=== PATIENT | male | born 1990 | race Caucasian/White ===

== ENCOUNTER → 2018-04-11 | Outpatient (CLI) | payer OTHER ==
--- NOTE | 2018-04-11 16:13 | XR ---
Right hand HISTORY: Trauma and pain 3 views of the right hand Bone mineralization, joint spaces and alignment are maintained. Soft tissue swelling noted at the thi rd digit of the right hand. IMPRESSION: No fracture or dislocation.
== END | disposition home or self-care (01) ==
LOC: RADXRYALE 15:09
PROVIDERS: ATTEND Internal Medicine
DX: M79.641 Pain in right hand (principal)

== ENCOUNTER → 2019-01-02 | Outpatient (CLI) | payer OTHER ==
--- NOTE | 2019-01-02 13:27 | XR ---
EXAMINATION TYPE: XR ankle complete LT DATE OF EXAM: 01/02/2019 COMPARISON: NONE HISTORY: Pain FINDINGS: Three views of the ankle demonstrate the ankle mortise to be intact and symmetric. The joint spaces are preserved. The osseous structures are intact. IMPRESSION: 1. No definite osseous abnormality. If there is concern for soft tissue injury or mass correlate with MRI.
== END ==
LOC: RADXRYALE 13:01
PROVIDERS: ATTEND Internal Medicine
DX: M25.572 Pain in left ankle and joints of left foot (principal)

== ENCOUNTER → 2020-04-20 | Outpatient (CLI) | payer BC ==
--- NOTE | 2020-04-20 23:33 | MR ---
EXAMINATION TYPE: MR lumbar spine wo con DATE OF EXAM: 04/20/2020 COMPARISON: None HISTORY: Low back pain and right hip pain. Multiplanar multiecho imaging of the lumbar spine was performed without contrast. Lumbar vertebra have normal alignment. There is some mild narrowing and decreased signal in the disks at L4-5 L5-S1. There is posterior disc herniation at L4-5 and L5-S1 in the midline. L5-S1 disc herni ation is larger with some encroachment and compromise of the spinal canal. There is no paraspinal mass. Sacroiliac joints appear intact. There is no compression fracture. The n eural foramina are fairly well-maintained. Lumbar nerve roots appear intact. I see no bony destructiv e process. IMPRESSION: Posterior disc herniations at L4-5 L5-S1 in the midline with a mild relative spinal stenosis at L5-S1 . No fracture. Smaller L4-5 posterior disc herniation.
== END | disposition home or self-care (01) ==
LOC: RADMRIMAIN 20:19
PROVIDERS: ATTEND Orthopaedic Surgery
DX: M48.07 Spinal stenosis, lumbosacral region (principal); M51.26 Other intervertebral disc displacement, lumbar region; M51.27 Other intervertebral disc displacement, lumbosacral region
CPT/HCPCS: 72148

== ENCOUNTER 2020-07-21 11:51 | Day surgery (SDC) | payer BC ==
[2020-07-17 16:06] VITALS: BMI 25.1
[~2020-07-21 11:51] MED LIST: LACTATED RINGERS 1,000 ML IV SCH
[2020-07-21 12:33] VITALS: RESP 16; TEMP 98.2
[2020-07-21] MEDS ORDERED: ROPIVACAINE 5MG/ML 20ML VIAL ONE (12:41)
[2020-07-21] MEDS ORDERED: TRIAMCINOLONE ACETONIDE 40 MG/ML 1 ML VIAL ONE (12:41)
[2020-07-21] MEDS ORDERED: IOPAMIDOL M200 10 ML VIAL ONE (12:41)
--- NOTE | 2020-07-21 13:00 | P.PCN ---
Date of Procedure: 07/21/20 Surgeon: Niya Marcial Pathology: none sent Condition: stable Disposition: PACU Description of Procedure: PREOPERATIVE DIAGNOSIS: 1-Lumbar radiculopathy 2- Lumber disc herniation. POSTOPERATIVE DIAGNOSIS: Same as above PROCEDURE 1. Lumbar epidural steroid injection under fluoroscopic guidance at the L5-S1 level left paramedian. 2. Lumbar epidurogram. ANESTHESIA: Local only with 1% lidocaine EBL: Minimal PROCEDURE INDICATION: The patient with low back pain and radiculitis symptoms unresponsive to conservative treatment. Fluoroscopy was used to optimize visualization of the needle placement and to maximize safety. The patient used to have pain in the right leg with numbness and tingling however he denies any of these symptoms right now. his pain currently is more on the left side today. Because of his sideshifting pain and lack of pain on the right side I decided to do an interlaminar epidural steroid injection at the L5-S1 level under fluoroscopic guidance instead of the transforaminal epidural on the right side of the L5-S1 as the patient was scheduled for. Description of procedure: The patient was seen and identified in the preoperative area. Risks, benefits, complications including but not limited to infections ,bleeding ,allergic reaction to the medications ,nerve damage and not complete pain relief , and alternatives were discussed with the patient. The patient agreed to proceed with the procedure and signed the consent. IV was started, and vital signs were stable. Patient was taken to the OR and time out was completed. The patient was placed in the prone position on procedure table and a pillow was placed under the abdomen to reduce lumbar lordosis. The lumbosacral area was prepped and draped in the usual sterile fashion with ChloraPrep.Patient was closely monitored during the procedure. Conscious sedation was used during the procedure to decrease patients anxiety. Vital signs were monitered during the entire procedure. Using anterior-posterior fluoroscopy, the L5-S1 interlaminar space was identified and the skin over this site was marked and then infiltrated with 1% lidocaine subcutaneously. Subsequently, a 20-gauge Tuohy epidural needle was inserted and advanced toward the epidural space using the Loss of resistance to air technique and guided by AP and lateral fluoroscopy. The correct needle position in the epidural space was verified with the injection of 1 mL of the water soluble contrast dye Omnipaque 180 contrast and observing an excellent epidurogram with the epidural spread of the dye, after negative aspiration for blood and CSF and in the absence of paresthesias. Again after negative aspiration, a 8 ml mixture containing 80 mg of Kenalog and 5 ml of preservative free Normal Saline, and 2 ml of preservative free ropivacaine 0.5% solution was injected and a washout of epidurogram was seen. Needle was withdrawn intact, skin was cleansed, and bandages were applied. patient tolerated procedure well and was transferred to PACU in stable condition.A copy of the needle placement picture was saved to the fluoroscopy machine. COMPLICATIONS: None
--- NOTE | 2020-07-21 13:05 | P.CONS ---
History of Present Illness - Reason for Consult Consult date: 07/21/20 - Chief Complaint Lower back and left leg pain - History of Present Illness This is a 30-year-old gentleman with history of lower back pain which started when he was in school. The patient used to have pain going down his right leg with numbness and tingling however recently the pain started on that side and started going to the left leg. The patient now denies any paresthesia in the lower extremities. He denies any bowel or bladder dysfunction or any weakness in the lower extremities. This pain gets worse by sitting for too long or walking for prolonged. The patient was scheduled to have transforaminal epidural steroid injection at the L5-S1 level on the right side by Dr. Ashby. Past Medical History Additional Past Medical History / Comment(s): Lower back pain. States played hockey in college and states he thinks pain is from this. History of Any Multi-Drug Resistant Organisms: None Reported Additional Past Surgical History / Comment(s): Colonoscopy Past Anesthesia/Blood Transfusion Reactions: No Reported Reaction Smoking Status: Never smoker - Past Family History Mother Family Medical History: No Reported History Medications and Allergies Home Medications Medication Instructions Recorded Confirmed Type Naproxen Sodium [Aleve] 220 mg PO DAILY 07/17/20 07/17/20 History Allergies Allergy/AdvReac Type Severity Reaction Status Date / Time No Known Allergies Allergy Verified 07/21/20 12:26 Physical Exam Vitals: Vital Signs Temp Pulse Resp BP Pulse Ox 07/21/20 12:32 98.2 F 80 16 130/76 100 Intake and Output 07/20/20 07/21/20 07/21/20 22:59 06:59 14:59 Other: Weight 80.6 kg - Constitutional General appearance: average body habitus - Neurologic Straight leg raising test negative bilaterally, Antoine's test negative bilaterally, internal and external rotation of the hip joints did not elicit any pain. The patient has normal muscle strength in the lumbar extremities Neurologic: CNII-XII intact - Psychiatric Psychiatric: A&O x's 3, appropriate affect, intact judgment & insight Results Results: Lumbar spine MRI showed disc herniation at the L4 5 and L5-S1 level more significant at the L5-S1 level. Assessment and Plan Plan: This is a 30-year-old gentleman with lumbar disc herniation. The patient's pain is more on the left side today than the right side. The patient was scheduled to have transforaminal epidural steroid injection at the L5-S1 level on the r ight side however given his clinical picture today I decided to do lumbar interlaminar epidural steroid injection under fluoroscopic guidance. I thank Dr. Ashby for the referral
[2020-07-21 13:22] VITALS: BP 121/77; PULSE 78
--- NOTE | 2020-07-21 16:43 | FL ---
Fluoroscopy HISTORY: Pain 5 seconds fluoroscopy time supplied to the referring clinician. 3 intraoperative C-arm images docume nt the procedure. See dictated report from anesthesia.
== END 2020-07-21 13:33 | disposition home or self-care (01) ==
LOC: ORPAIN 11:51
PROVIDERS: ATTEND Anesthesiology
DX: M51.16 Intervertebral disc disorders with radiculopathy, lumbar region (principal); Z98.890 Other specified postprocedural states; Z79.1 Long term (current) use of non-steroidal anti-inflammatories (NSAID)
CPT/HCPCS: 62323; J3301; Q9966; J2795; 64483

== ENCOUNTER 2020-08-06 13:10 | Day surgery (SDC) | payer BC ==
[2020-08-05 10:27] VITALS: BMI 25.4
[2020-08-06 13:30] VITALS: TEMP 97.5
[2020-08-06] MEDS ORDERED: methylPREDNISolone ACETATE 40 MG/ML 1 ML VIAL ONE (13:43)
[2020-08-06] MEDS ORDERED: IOPAMIDOL M200 10 ML VIAL ONE (13:43)
--- NOTE | 2020-08-06 13:54 | P.PCN ---
Date of Procedure: 08/06/20 Procedure(s) Performed: PREOPERATIVE DIAGNOSIS: 1- Lumbar herniated Disc Diseases 2-Lumbar radiculopathy. POSTOPERATIVE DIAGNOSIS: Same as preop diagnosis. PROCEDURE 1. Lumbar epidural steroid injection under fluoroscopic guidance at the L5-S1 level. (Fluoroscopy imaging was available in radiology department) 2. Lumbar epidurogram. ANESTHESIA: Local with 1% lidocaine 3 ml only EBL: Minimal PROCEDURE INDICATION: The patient with low back pain and radiculitis symptoms unresponsive to conservative treatment. Fluoroscopy was used to optimize visualization of the needle placement and to maximize safety. PROCEDURE DESCRIPTION / TECHNIQUE: The patient was seen and identified in the preoperative area. Risks, benefits, complications including but not limited to infections ,bleeding ,allergic reaction to the medications ,nerve damage and not complete pain releife , and alternatives were discussed with the patient. The patient agreed to proceed with the procedure and signed the consent. IV was started, and vital signs were stable. Patient was taken to the OR and time out was completed. The patient was placed in the prone position on procedure table and a pillow was placed under the abdomen to reduce lumbar lordosis. The lumbosacral area was prepped and draped in the usual sterile fashion.ere closely monitored during the procedure. Vital signs was monitered during the entire procedure. Using anterior-posterior fluoroscopy, the L5-S1 interlaminar space was identified and the skin over this site was marked and then infiltrated with 1% lidocaine subcutaneously. Subsequently, a 20-gauge Tuohy epidural needle was inserted and advanced toward the epidural space using the ``Loss of resistance technique and guided by AP and lateral fluoroscopy. The correct needle position in the epidural space was verified with the injection of 2 mL of the water gonzalez uble contrast dye Isovue 200 contrast and observing an excellent epidurogram with the epidural spread of the dye, after negative aspiration for blood and CSF and in the absence of paresthesias. Again after negative aspiration, a 6 ml mixture containing 80 mg of Depo-medrol , and 2 ml of preservative free Normal Saline, and 2 ml of preservative free lidocaine 1% solution was injected and a washout of epidurogram was seen. Needle was withdrawn intact, skin was cleansed, and bandages were applied. COMPLICATIONS: None DISPOSITION / PLANS: The patient was placed in a supine position and transferred to the recovery area in a stable condition for observation. There was no evidence of lower extremity motor or sensory deficit after the procedure. Patient was discharged from the recovery room after meeting discharge criteria. Home discharge instructions were given to the patient by the staff. The patient was reexamined prior to discharge. The patient will schedule a follow up in the clinic in 2-4 weeks.
[2020-08-06 14:00] VITALS: RESP 18
--- NOTE | 2020-08-06 14:06 | FL ---
EXAMINATION TYPE: FL guided pain mgmt statistic DATE OF EXAM: 08/06/2020 HISTORY: Fluoroscopy time 2 seconds of fluoroscopy provided. IMPRESSION: 1. Fluoroscopy time.
[2020-08-06 14:17] VITALS: BP 139/86; PULSE 66
== END 2020-08-06 14:23 | disposition home or self-care (01) ==
LOC: ORPAIN 13:10
PROVIDERS: ATTEND Specialist
DX: M51.16 Intervertebral disc disorders with radiculopathy, lumbar region (principal)
CPT/HCPCS: 62323; J1030; Q9966

== ENCOUNTER → 2020-09-21 | Outpatient (CLI) | payer BC ==
[2020-09-21 14:19] VITALS: BP 134/92; PULSE 91; RESP 18; TEMP 98.5
--- NOTE | 2020-09-21 14:56 | P.PN ---
Subjective Progress Note Date: 09/21/20 This is a 30-year-old gentleman with history of lower back pain with radiation to the left leg and 2 recent lumbar epidural steroid injection. The patient says that these injections gave him 75-80% of pain relief. 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 Patient denies new-onset weakness, bowel/bladder incontinence, or any other signs or symptoms of cauda equina syndrome. There are no signs of acute intoxication, and no indications of medication diversion or overuse. In addition to above, 13-point review of systems is also negative for chest pain, shortness of breath, changes in vision, changes in hearing, new onset weakness, abdominal pain, diarrhea, extreme fatigue, malaise, fever, skin changes, homicidal or suicidal ideation, or bowel or bladder incontinence. Vital Signs: Reviewed in EMR Gen: AAOx3, NAD HEENT: PERRLA,hearing grossly normal Pulm: resp unlabored Neck: supple, trachea midline Neuro exam of the lower extremities: Normal muscle strength bilaterally Straight leg raising test: Mildly positive on the left side Tenderness in the paravertebral musculature: Mild tenderness in the lumbar paravertebral musculature on the left side Neuro: CN II-XII grossly intact, Imaging: Reviewed in EMR/chart Assessment: Lumbar radiculopathy Plan: 1. Explanation: Opioid and psychological risk scores were reviewed. Diagnoses, prognoses, and multiple treatment options including but not limited to physical therapy, interventional therapies, adjuvant medical therapies, narcotic medication therapies, and surgery were discussed with the patient and all questions were answered to the patient's satisfaction. 2. Opioid agreement: Signed with the patient and the patient is warned not to use opioids while driving or before driving and not to combine opioids with benzodiazepines or alcohol. 3. Counseling: The patient was counseled extensively on SMOKING CESSATION, BODY MASS INDEX, EXERCISE. Specifically, the patient was instructed regarding the importance of smoking cessation, obesity, and exercise in the context of both chronic pain and overall health. 4. Procedures: For now however if his pain starts to get worse then we might need to do another epidural steroid injection. 5. Consultations: None 6. Investigations: None 7. Medications: None prescribed 8. Disposition: Return to clinic as needed Objective - Vital Signs Vital signs: Vital Signs Temp 98.5 F 09/21/20 14:12 Pulse 91 09/21/20 14:12 Resp 18 07/19/21 14:12 BP 134/92 09/21/20 14:12 Pulse Ox 97 09/21/20 14:12
== END ==
LOC: PNWHC3 14:04
PROVIDERS: ATTEND Anesthesiology
DX: M54.16 Radiculopathy, lumbar region (principal)
CPT/HCPCS: 99211

== ENCOUNTER → 2021-02-24 | Outpatient (CLI) | payer BC ==
--- NOTE | 2021-02-25 08:45 | XR ---
EXAMINATION TYPE: XR elbow complete RT DATE OF EXAM: 02/24/2021 COMPARISON: NONE HISTORY: Pain FINDINGS: Three views of the elbow demonstrate no pathologic joint effusion. The osseous structures are intact . There is no acute fracture or dislocation. There is a small olecranon spur with soft tissue fulln ess in the region. IMPRESSION: 1. Olecranon spur with soft tissue fullness. Correlate for olecranon bursitis.
== END | disposition home or self-care (01) ==
LOC: RADXRYALE 16:05
PROVIDERS: ATTEND Internal Medicine
DX: M77.8 Other enthesopathies, not elsewhere classified (principal)

== ENCOUNTER → 2021-04-07 | Outpatient (CLI) | payer BC, MEDICAID ==
--- NOTE | 2021-04-07 09:35 | P.PN ---
Subjective Progress Note Date: 04/07/21 Principal diagnosis: A 30 yr old malewith a history of severe and chronic low back pain secondary to lumbar degenerative disc diseases and lumbar spondylosis with facet arthropathy presents today for pain evaluation. Patient states he had a LESI of the L5-S1 in August 2020 where he experienced pain relief for approximately 4 months. Pain level is currently at 3 out of 10 in intensity, dull/ achy in character and occasionally sharp/ shooting towards the left hip. 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 Pain is alleviated with medication ice stretching and a home based physical therapy regimen. Patient also admits that he was hit with a hockey puck 3 days ago on the right side of his neck and he is still experiencing pain and limited range of motion due to pain and stiffness Interventional pain procedures completed include LESI of the L5-S1 Patient denies any side effects of the medication(s), denies excessive drowsiness or sleepiness, denies suicidal ideation and reports that the current pain medication is helping to control the pain and improve activities of daily living. Patient denies any motor or sensory deficits. Patient denies any fever or night sweats, denies any change in the bowel movements or urination. Physical Examination: -Constitutional: Cooperative. Not in acute distress . -HEENT: Neck is supple. No lymphadenopathy. No thyromegaly. Normal thyroid size. Eyes: No ptosis , no icterus, no photophobia. ENT: No auditory deficits. Normal oropharynx. No Thrush. - Respiratory: Chest clear to auscultations bilaterally. No wheezing. No rhonchi. - Cardiovascular: Regular rate and rhythm. S1 / S2 , no S3 , no S4. - Gastrointestinal: Abdomen soft no tenderness. Bowel sounds positive in all four quadrants. No organomegaly. - Genitourinary: Deferred. - Neurologic: Cranial nerve II to XII intact. No focal neurological deficits. - Psychatric: Alert & oriented x 3. Matching mood & appropriate affect. Judgment and insight intact. - Lymphatic: No Lymphadenopathy. - Musculoskeletal: Cervical spine: Muscle bulk/ tone/ strength in the bilateral upper extremities normal. Lateral flexion less than 20 bilaterally Cervical rotation to the right limited due to pain and spasms Right cervical paraspinal spasms noted upon palpation Facet loading test cervical area positive. Lumbar spine: Motor bulk/ tone/ strength lower extremities , thigh and legs : 5/5 Deep tendon reflexes : Normal Knee Jerk. Normal Ankle Jerk . Lumbar Facet Loading Test positive over L4-S1 Straight Leg Raise: positive at 30 degrees right side/ left side Caroline test: positive right side / left side Range of motion: Flexion of the lumbar spine <60 degrees Range of motion: Extension of the lumbar spine <20 degrees Severe tenderness over the Sacroiliac joint: right side / left side Assessment and plan: Recommendation of an MRI of the cervical spine status post trauma Recommendation of LESI of the L5-S1 Risks benefits of procedure discussed and patient verbalized understanding Denies aspirin or anticoagulant use All patient questions answered MAPS reviewed and it was appropriate. I have spent 31 minutes on patient care today. Dr Evans was available by phone for the evaluation of this patient. The time was used to review the medical records including relevant urine studies and Prescription history (MAPs), review of the available imaging, evaluation and examination of the patient, coordination of care with the medical staff and if applicable referring physicians, as well as creation of the medical record PQRS Measure Charge Sheet - Pain Location Lower Back Non-Pharmacological Interventions: Inactivity PQRS Narrative: Pain Intensity [Lower Back] 4 Scale Used Numeric (1 - 10) Home Medications: Ambulatory Orders No Known Home Medications 09/17/20
[2021-04-07 09:54] VITALS: BP 141/82; PULSE 87; RESP 18; TEMP 97.9
== END ==
LOC: PNWHC3 08:45
PROVIDERS: ATTEND Physician Assistant Medical
DX: M47.816 Spondylosis without myelopathy or radiculopathy, lumbar region (principal); M51.36 Other intervertebral disc degeneration, lumbar region
CPT/HCPCS: 99211

== ENCOUNTER 2021-05-04 07:59 | Day surgery (SDC) | payer MEDICAID ==
[2021-05-03 09:54] VITALS: BMI 23.7
[2021-05-04 08:17] VITALS: RESP 16; TEMP 97.5
[2021-05-04] MEDS ORDERED: methylPREDNISolone ACETATE 80 MG/ML 1 ML VIAL ONE (08:18)
[2021-05-04] MEDS ORDERED: IOPAMIDOL M200 10 ML VIAL ONE (08:18)
--- NOTE | 2021-05-04 08:33 | P.PCN ---
Date of Procedure: 05/04/21 Description of Procedure: Procedure: 1. L5-S1 Epidural steroid injection under fluoroscopic guidance # 03/08 , 2. Lumbar epidurogram PREOPERATIVE DIAGNOSIS: Lumbar degenerative disc disease, and Lumbar radiculopathy. POSTOPERATIVE DIAGNOSIS: Lumbar degenerative disc disease, and Lumbar radiculopathy. SURGEON: Twan Diamond ANESTHESIA: Local with 1% lidocaine, and IV sedation : None EBL: None. Specimen removed: None Fluoroscopic image: saved to electronic medical records PROCEDURE INDICATION: The patient had history of Lumbar degenerative disc disease and Lumbar radiculopathy. Failed to conservative therapy. Presented for epidural steroid injection. Patient had previous epidural steroid injection more than 6 months ago which helped him good pain relief. Came back for repeat epidural procedure injection. PROCEDURE DESCRIPTION: The patient was seen and identified in the preoperative area. Risks, benefits, complications, and alternatives were discussed with the patient. The patient agreed to proceed with the procedure and signed the consent. IV was started, and vital signs were stable. Patient was taken to the procedure area, and time out was completed. The patient was placed in the prone position on procedure table and a pillow was placed under the abdomen to reduce lumbar lordosis. The lumbosacral area was prepped and draped in the usual sterile fashion. Critical pause was taken. Vital signs were closely monitored during the procedure. Using anterior-posterior fluoroscopy, the L5-S1 interlaminar space was identified, and skin and deeper tissues were localized with 1% lidocaine. Using anterior-posterior fluoroscopy, lateral fluoroscopy, and [id number] technique, a 18 gauge 3.5 Tuohy epidural needle entered the epidural space. After negative aspiration of CSF and blood with no paresthesias, 1 ml of [id number] contrast dye was injected and an excellent epidurogram was seen. Again after negative aspiration of CSF and blood with no paresthesias, 10 mL of block solution was injected into the epidural space. Block solution contained 80 mg of Depo-Medrol, and 9 mL of preservative-free normal saline. Needle was withdrawn intact, skin was cleansed, and bandages were applied. COMPLICATIONS: None. DISPOSITION / PLANS: The patient was placed in a supine position and transferred to the recovery area in a stable condition for observation. Patient was discharged from the recovery room after meeting discharge criteria. Home discha rge instructions given to the patient by the staff. The patient was reexamined prior to discharge. The patient will schedule a follow up in the clinic in 4 weeks.
[2021-05-04] MEDS ORDERED: LACTATED RINGERS 1,000 ML IV SCH (08:45)
[2021-05-04 08:46] VITALS: BP 131/84; PULSE 75
--- NOTE | 2021-05-04 11:20 | FL ---
Fluoroscopy HISTORY: Pain 5 seconds fluoroscopy time supplied to the referring clinician. 2 intraoperative C-arm images docume nt the procedure. See dictated report from anesthesia.
== END 2021-05-04 09:10 | disposition home or self-care (01) ==
LOC: ORPAIN 07:59
DX: M51.16 Intervertebral disc disorders with radiculopathy, lumbar region (principal)
CPT/HCPCS: 62323; J1040; Q9966

== ENCOUNTER → 2021-05-17 | Outpatient (CLI) | payer MEDICAID ==
[2021-05-17 09:10] VITALS: BP 130/81; PULSE 90; RESP 18; TEMP 97.8
--- NOTE | 2021-05-17 09:10 | P.PN ---
Subjective Progress Note Date: 05/17/21 Principal diagnosis: A 31 yr old male with a history of severe and chronic low back pain secondary to lumbar degenerative disc diseases and lumbar spondylosis with facet arthropathy presents today for evaluation status post LESI L5-S1. Patient states he experienced 0% pain relief status post procedure. Pain level has worsened and is currently 7 out of 10 in intensity, dull, achy in the lower aspects of the lumbar spine but escalates as high as 10 out of 10 in intensity with standing, walking, bending, lifting or rolling over at bedtime. He also admits to left lower extremity occasional shooting pain. Pain is alleviated with topicals, injections, ice and heat alternations, physical therapy that was discontinued due to his MRI results. Daily home stretching regimen, massage therapy that ended 12/24, repositioning and rest. Interventional pain procedures completed include LESI L5-S1 x 3. Patient denies any side effects of the medication(s), denies excessive drowsiness or sleepiness, denies suicidal ideation and reports that the current pain medication is helping to control the pain and improve activities of daily living. Patient denies any motor or sensory deficits. Patient denies any fever or night sweats, denies any change in the bowel movements or urination. Physical Examination: -Constitutional: Cooperative. Not in acute distress . -HEENT: Neck is supple. No lymphadenopathy. No thyromegaly. Normal thyroid size. Eyes: No ptosis , no icterus, no photophobia. ENT: No auditory deficits. Normal oropharynx. No Thrush. - Respiratory: Chest clear to auscultations bilaterally. No wheezing. No rhonchi. - Cardiovascular: Regular rate and rhythm. S1 / S2 , no S3 , no S4. - Gastrointestinal: Abdomen soft no tenderness. Bowel sounds positive in all four quadrants. No organomegaly. - Genitourinary: Deferred. - Neurologic: Cranial nerve II to XII intact. No focal neurological deficits. - Psychatric: Alert & oriented x 3. Matching mood & appropriate affect. Judgment and insight intact. - Lymphatic: No Lymphadenopathy. - Musculoskeletal: Cervical spine: Muscle bulk/ tone/ strength in the bilateral upper extremities normal. Facet loading test cervical area positive. Lumbar spine: Motor bulk/ tone/ strength lower extremities , thigh and legs : 5/5 Deep tendon reflexes : Normal Knee Jerk. Normal Ankle Jerk . Vertebral body tenderness to palpation over L4, L5 Lumbar Facet Loading Test positive Straight Leg Raise: positive at 30 degrees right side/ left side Gaenslen's Test positive Sacral spine : Severe tenderness over the Sacroiliac joint: right side / left side Range of motion: Flexion of the lumbar spine <60 degrees Range of motion: Extension of the lumbar spine <20 degrees Gaenslen's Test positive Caroline test: positive right side / left side Assessment and plan: Chronic low back pain secondary to lumbar degenerative disc disease , lumbar spondylosis with facet arthropathy without myelopathy Recommendation of LESI L4-L5. Risks, benefits of procedure discussed and patient verbalized understanding. Denies anticoagulant use. Denies medical history of diabetes mellitus. All patient questions answered MAPS reviewed and it was appropriate. I have spent 31 minutes on patient care today. Dr Evans was available by phone for the evaluation of this patient. The time was used to review the medical records including relevant urine studies and Prescription history (MAPs ), review of the available imaging, evaluation and examination of the patient, coordination of care with the medical staff and if applicable referring physicians, as well as creation of the medical record PQRS Measure Charge Sheet Mode of Arrival: Ambulatory PQRS Narrative: Blood Pressure 130/81 Pain Intensity [Lower Back] 7 Scale Used Numeric (1 - 10) Hx Alcohol Use (MH) No Home Medications: Ambulatory Orders No Known Home Medications 09/17/20
== END ==
LOC: PNWHC3 08:46
PROVIDERS: ATTEND Physician Assistant Medical
DX: M51.36 Other intervertebral disc degeneration, lumbar region (principal); M47.816 Spondylosis without myelopathy or radiculopathy, lumbar region; G89.29 Other chronic pain
CPT/HCPCS: 99211

== ENCOUNTER 2021-06-22 13:15 | Day surgery (SDC) | payer MEDICAID ==
[2021-06-21 09:10] VITALS: BMI 24.4
[~2021-06-22 13:15] MED LIST changes: +LIDOCAINE 1% (10MG/ML) FOR IV START INTRADERMA PRN
[2021-06-22 13:29] VITALS: TEMP 98.2
[2021-06-22] MEDS ORDERED: methylPREDNISolone ACETATE 40 MG/ML 1 ML VIAL ONE (13:42)
[2021-06-22] MEDS ORDERED: IOPAMIDOL M200 10 ML VIAL ONE (13:42)
--- NOTE | 2021-06-22 13:55 | P.PCN ---
Date of Procedure: 06/22/21 Procedure(s) Performed: PREOPERATIVE DIAGNOSIS: 1- Lumbar herniated Disc Diseases 2-Lumbar radiculopathy. POSTOPERATIVE DIAGNOSIS: Same as preop diagnosis. PROCEDURE 1. Lumbar epidural steroid injection under fluoroscopic guidance at the L4-5 level. (Fluoroscopy imaging was available in radiology department) 2. Lumbar epidurogram. ANESTHESIA: Local with 1% lidocaine 3 ml only EBL: Minimal PROCEDURE INDICATION: The patient with low back pain and radiculitis symptoms unresponsive to conservative treatment. Fluoroscopy was used to optimize visualization of the needle placement and to maximize safety. PROCEDURE DESCRIPTION / TECHNIQUE: The patient was seen and identified in the preoperative area. Risks, benefits, complications including but not limited to infections ,bleeding ,allergic reaction to the medications ,nerve damage and not complete pain releife , and alternatives were discussed with the patient. The patient agreed to proceed with the procedure and signed the consent. IV was started, and vital signs were stable. Patient was taken to the OR and time out was completed. The patient was placed in the prone position on procedure table and a pillow was placed under the abdomen to reduce lumbar lordosis. The lumbosacral area was prepped and draped in the usual sterile fashion.ere closely monitored during the procedure. Vital signs was monitered during the entire procedure. Using anterior-posterior fluoroscopy, the L4-5 interlaminar space was identified and the skin over this site was marked and then infiltrated with 1% lidocaine subcutaneously. Subsequently, a 20-gauge Tuohy epidural needle was inserted and advanced toward the epidural space using the ``Loss of resistance technique and guided by AP and lateral fluoroscopy. The correct needle position in the epidural space was verified with the injection of 2 mL of the water soluble contrast dye Isovue 200 contrast and observing an excellent epidurogram with the epidural spread of the dye, after negative aspiration for blood and CSF and in the absence of paresthesias. Again after negative aspiration, a 6 ml mixture containing 80 mg of Depo-medrol , and 2 ml of preservative free Normal Saline, and 2 ml of preservative free lidocaine 1% solution was injected and a washout of epidurogram was seen. Needle was withdrawn intact, skin was cleansed, and bandages were applied. COMPLICATIONS: None DISPOSITION / PLANS: The patient was placed in a supine position and transferred to the recovery area in a stable condition for observation. There was no evidence of lower extremity motor or sensory deficit after the procedure. Patient was discharged from the recovery room after meeting discharge criteria. Home discharge instructions were given to the patient by the staff. The patient was reexamined prior to discharge. The patient will schedule a follow up in the clinic in 2-4 weeks.
[2021-06-22 14:07] VITALS: RESP 20
--- NOTE | 2021-06-22 14:11 | FL ---
EXAMINATION TYPE: FL guided pain mgmt statistic DATE OF EXAM: 06/22/2021 HISTORY: Fluoroscopy time 1 seconds of fluoroscopy provided. IMPRESSION: 1. Fluoroscopy time.
[2021-06-22 14:18] VITALS: BP 126/83; PULSE 78
== END 2021-06-22 14:24 ==
LOC: ORPAIN 13:15
PROVIDERS: ATTEND Specialist
DX: M51.16 Intervertebral disc disorders with radiculopathy, lumbar region (principal)
CPT/HCPCS: 62323; J1030; Q9966

== ENCOUNTER 2022-06-09 06:44 | Day surgery (SDC) | payer OTHER ==
[2022-06-09 07:09] VITALS: TEMP 97.7
[2022-06-09] MEDS ORDERED: IOPAMIDOL M200 10 ML VIAL ONE (07:40)
[2022-06-09] MEDS ORDERED: methylPREDNISolone ACETATE 80 MG/ML 1 ML VIAL ONE (07:40)
--- NOTE | 2022-06-09 07:54 | P.PCN ---
Date of Procedure: 06/09/22 Description of Procedure: Procedure: 1. L4-L5 Epidural steroid injection under fluoroscopic guidance , 2. Lumbar epidurogram PREOPERATIVE DIAGNOSIS: Lumbar degenerative disc disease, and Lumbar radiculopathy. POSTOPERATIVE DIAGNOSIS: Lumbar degenerative disc disease, and Lumbar ra diculopathy. SURGEON: Twan Diamond ANESTHESIA: Local with 1% lidocaine, and IV sedation: None EBL: None. Specimen removed: None Fluoroscopic image: saved to electronic medical records PROCEDURE INDICATION: The patient had history of Lumbar degenerative disc disease and Lumbar radiculopathy. Failed to conservative therapy. Presented for epidural steroid injection. PROCEDURE DESCRIPTION: The patient was seen and identified in the preoperative area. Risks, benefits, complications, and alternatives were discussed with the patient. The patient agreed to proceed with the procedure and signed the consent. IV was started, and vital signs were stable. Patient was taken to the procedure area, and time out was completed. The patient was placed in the prone position on procedure table and a pillow was placed under the abdomen to reduce lumbar lordosis. The lumbosacral area was prepped and draped in the usual sterile fashion. Critical pause was taken. Vital signs were closely monitored during the procedure. Using anterior-posterior fluoroscopy, the L4-L5 interlaminar space was identified, and skin and deeper tissues were localized with 1% lidocaine. Using anterior-posterior fluoroscopy, lateral fluoroscopy, and [id number] technique, a 20 gauge 3.5 Tuohy epidural needle entered the epidural space. After negative aspiration of CSF and blood with no paresthesias, 1 ml of [id number] contrast dye was injected and an excellent epidurogram was seen. Again after negative aspiration of CSF and blood with no paresthesias, 8 mL of block solution was injected into the epidural space. Block solution contained 80 mg of Depo-Medrol, and 6 mL of preservative-free normal saline. Needle was withdrawn intact, skin was cleansed, and bandages were applied. COMPLICATIONS: None. DISPOSITION / PLANS: The patient was placed in a supine position and transferred to the recovery area in a stable condition for observation. Patient was discharged from the recovery room after meeting discharge criteria. Home discharge instructions given to the patient by the staff. The patient was reexamined prior to discharge. The patient will schedule a follow up in the clinic in 4 weeks.
[2022-06-09 07:56] VITALS: RESP 18
[2022-06-09] MEDS ORDERED: LACTATED RINGERS 1,000 ML IV SCH (08:00)
[2022-06-09 08:12] VITALS: BP 123/86; PULSE 82
--- NOTE | 2022-06-09 09:47 | FL ---
EXAMINATION TYPE: FL guided pain mgmt statistic DATE OF EXAM: 06/09/2022 HISTORY: Fluoroscopy time 3 seconds of fluoroscopy provided. DAP .[id number]. IMPRESSION: 1. Fluoroscopy time.
== END 2022-06-09 08:25 | disposition home or self-care (01) ==
LOC: ORPAIN 06:44
DX: M51.16 Intervertebral disc disorders with radiculopathy, lumbar region (principal); F17.200 Nicotine dependence, unspecified, uncomplicated; Z79.1 Long term (current) use of non-steroidal anti-inflammatories (NSAID)
CPT/HCPCS: 62323; J1040; Q9966

== ENCOUNTER 2023-06-17 17:37 | Emergency (ER) | payer OTHER ==
--- NOTE | 2023-06-17 17:50 | ED ---
Back Pain HPI - General Chief Complaint: Back Pain/Injury Stated Complaint: Back pain Time Seen by Provider: 06/17/23 17:49 Source: patient, RN notes reviewed Limitations: no limitations - History of Present Illness Initial Comments: This is a 33-year-old male who presents to the emergency department with a chief complaint of lumbar back pain. Patient states that he woke up this morning with a tightness in his back and has gotten worse throughout the day. He denies any saddle anesthesias, loss of bladder or bowel continence, or paresthesias. He also denies any trauma or injury over the past few days. Patient has a history of lumbar back pain due to a lifting incident when he was in college. Patient states that he has received epidural shots in his back previously. He has tried anti-inflammatories at home with minimal relief. - Related Data Previous Rx's Medication Instructions Recorded Cyclobenzaprine [Flexeril] 10 mg PO BID PRN 30 Days #60 tab 04/21/22 Ibuprofen [Motrin] 600 mg PO Q12HR PRN 30 Days #60 tab 04/21/22 predniSONE 50 mg PO DAILY #5 tab 06/17/23 Allergies Allergy/AdvReac Type Severity Reaction Status Date / Time No Known Allergies Allergy Verified 06/17/23 17:47 Review of Systems ROS Statement: Those systems with pertinent positive or pertinent negative responses have been documented in the HPI. ROS Other: All systems not noted in ROS Statement are negative. Past Medical History Past Medical History: Skin Disorder Additional Past Medical History / Comment(s): Lower back pain, Eczema. History of Any Multi-Drug Resistant Organisms: None Reported Additional Past Surgical History / Comment(s): Colonoscopy, pain clinic procedure. Past Anesthesia/Blood Transfusion Reactions: No Reported Reaction Past Psychological History: Anxiety Smoking Status: Never smoker Past Alcohol Use History: Occasional Past Drug Use History: Marijuana - Past Family History Mother Family Medical History: No Reported History Father Family Medical History: CVA/TIA General Exam Limitations: no limitations General appearance: alert, in no apparent distress Head exam: Present: atraumatic, normocephalic, normal inspection Eye exam: Present: normal appearance, PERRL, EOMI. Absent: scleral icterus, conjunctival injection, periorbital swelling ENT exam: Present: normal exam, mucous membranes moist Neck exam: Present: normal inspection. Absent: tenderness, meningismus, lymphadenopathy Respiratory exam: Present: normal lung sounds bilaterally. Absent: respiratory distress, wheezes, rales, rhonchi, stridor Cardiovascular Exam: Present: regular rate, normal rhythm, normal heart sounds. Absent: systolic murmur, diastolic murmur, rubs, gallop, clicks GI/Abdominal exam: Present: soft, normal bowel sounds. Absent: distended, tenderness, guarding, rebound, rigid Extremities exam: Present: normal inspection, full ROM, normal capillary refill. Absent: tenderness, pedal edema, joint swelling, calf tenderness Back exam: Present: tenderness (lumbar spinal tenderness, mild pain with active movement). Absent: CVA tenderness (R), CVA tenderness (L) Neurological exam: Present: alert, oriented X3, CN II-XII intact Psychiatric exam: Present: normal affect, normal mood Skin exam: Present: warm, dry, intact, normal color. Absent: rash Course Vital Signs 06/17/23 17:43 Temperature 97.6 F Pulse Rate 94 Respiratory 18 Rate Blood Pressure 140/99 O2 Sat by Pulse 100 Oximetry Medical Decision Making - Medical Decision Making Was pt. sent in by a medical professional or institution (, PA, SENIOR BOILER OPERATOR, urgent care, hospital, or [place] health care facility...) When possible be specific @ -No Did you speak to anyone other than the patient for history (EMS, parent, family, police, friend...)? What history was obtained from this source @ -No Did you review nursing and triage notes (agree or disagree)? Why? @ -I reviewed and agree with nursing and triage notes Were old charts reviewed (outside hosp., previous admission, EMS record, old EKG, old radiological studies, urgent care reports/EKG's, [place] health care facility records)? Report findings @ -Previous admission reviewed where patient received epidural to lumbar back in 2022 Differential Diagnosis (chest pain, altered mental status, abdominal pain women, abdominal pain men, vaginal bleeding, weakness, fever, dyspnea, syncope, headache, dizziness, GI bleed, back pain, seizure, CVA, palpatations, mental health, musculoskeletal)? @ -Differential Musculoskeletal Muscular strain, contusion, ligament sprain, fracture, arthritis, septic arthritis, bursitis, cellulitis, muscle spasm, nerve compression, DVT, arterial occlusion, herpes zoster, electrolyte abnormality, tumor.... This is not meant to be in all inclusive list EKG interpreted by me (3pts min.). @ -None X-rays interpreted by me (1pt min.). @ -X-ray lumbar spine with no acute fracture, multilevel disc degeneration noted CT interpreted by me (1pt min.). @ -None done U/S interpreted by me (1pt. min.). @ -None done What testing was considered but not performed or refused? (CT, X-rays, U/S, labs)? Why? @ -None What meds were considered but not given or refused? Why? @ -None Did you discuss the management of the patient with other professionals (professionals i.e. Dr., PA, SENIOR BOILER OPERATOR, lab, RT, psych nurse, psychiatric social worker, press operator automatic, teacher, strategic intelligence officer, home health care case manager)? Give summary @ -No Was smoking cessation discussed for >3mins.? @ -No Was critical care preformed (if so, how long)? @ -No Were there social determinants of health that impacted care today? How? (Homelessness, low income, unemployed, alcoholism, drug addiction, transportation, low edu. Level, literacy, decrease access to med. care, alf, rehab)? @ -No Was there de-escalation of care discussed even if they declined (Discuss DNR or withdrawal of care, Hospice)? DNR status @ -No What co-morbidities impacted this encounter? (DM, HTN, Smoking, COPD, CAD, Cancer, CVA, ARF, Chemo, Hep., AIDS, mental health diagnosis, sleep apnea, morbid obesity)? @ -None Was patient admitted / discharged? Hospital course, mention meds given and route, prescriptions, significant lab abnormalities, going to OR and other pertinent info. @ -33-year-old male with lumbar back pain. No red flag findings on physical examination. plain radiographs were obtained. Patient's physical examination unremarkable for mild tenderness palpation over the right lumbar spine with negative straight leg test or paresthesias noted, musculoskeletal and neurological examination within normal limits. Patient drove himself to the emergency department he was given a shot of Toradol in addition to IM push of Solu-Medrol. Reevaluation of patient after dose of Toradol and steroids states that he feels better but his pain is still persistent. xray with no acute pathological findings. Patient states that he has at home cyclobenzaprine as needed. Patient will be prescribed short course of steroids and instructed to follow-up outpatient with his it operations specialist that he has establish care with patient is in agreement with this. Discussed with Dr. Womack Undiagnosed new problem with uncertain prognosis? @ -No Drug Therapy requiring intensive monitoring for toxicity (Heparin, Nitro, Insulin, Cardizem)? @ -No Were any procedures done? @ -No Diagnosis/symptom? @ -lumbar back pain, lower back spasm Acute, or Chronic, or Acute on Chronic? @ -Acute Uncomplicated (without systemic symptoms) or Complicated (systemic symptoms)? @ -uncomplicated Side effects of treatment? @ -No Exacerbation, Progression, or Severe Exacerbation? @ -No Poses a threat to life or bodily function? How? (Chest pain, USA, PA, pneumonia, PE, COPD, DKA, ARF, appy, cholecystitis, CVA, Diverticulitis, Homicidal, Suicidal, threat to staff... and all critical care pts) @ -No Disposition Clinical Impression: Strain of lumbar region Narrative: Please return to the Emergency Department if symptoms worsen or any other concerns. Disposition: HOME SELF-CARE Condition: Good Instructions (If sedation given, give patient instructions): Acute Low Back Pain (ED) Prescriptions: predniSONE 50 mg PO DAILY #5 tab Is patient prescribed a controlled substance at d/c from ED?: No Referrals: Makayla Nowak MD [Primary Care Provider] - 1-2 days Time of Disposition: 18:34
[2023-06-17] MEDS: KETOROLAC 15 MG/ML 1 ML VIAL IM STA (18:13)
[2023-06-17] MEDS: methylPREDNISolone SOD SUCCI 125 MG/2 ML VIAL IM ONE (18:13)
[2023-06-17 18:15] VITALS: BP 140/99; PULSE 94; RESP 18; TEMP 97.6
--- NOTE | 2023-06-17 18:22 | XR ---
EXAMINATION TYPE: XR lumbar spine 2 or 3V DATE OF EXAM: 06/17/2023 6:11 PM CLINICAL INDICATION:Male, 33 years old with history of back pain; COMPARISON: None TECHNIQUE: XR lumbar spine 2 or 3V - Frontal, lateral and coned in L5-S1 lateral views of the spine. FINDINGS: No evidence of any acute osseous pathology. No evidence of loss of vertebral body height i s seen. There is normal alignment of the lumbar vertebral bodies. Minimal scattered disc space narrow ing. Minimal marginal osteophyte formation throughout the visualized spine. There is facet joint arth ropathy throughout the spine. Scattered at least mild neural foraminal stenosis. IMPRESSION: 1. No acute fracture. 2. Mild multilevel disc degeneration.
== END 2023-06-17 18:38 | disposition home or self-care (01) ==
LOC: EC 17:37
DX: S39.012A Strain of muscle, fascia and tendon of lower back, initial encounter (principal); X58.XXXA Exposure to other specified factors, initial encounter
CPT/HCPCS: 99283 ×2; 96372 ×3; 72100; J1885; J2919

== ENCOUNTER → 2024-08-15 | Outpatient (CLI) | payer OTHER ==
--- NOTE | 2024-08-15 17:02 | XR ---
EXAMINATION TYPE: XR knee complete LT DATE OF EXAM: 08/15/2024 4:58 PM COMPARISON: None. CLINICAL INDICATION: Male, 34 years old with history of [id number] LT KNEE PAIN, pain TECHNIQUE: 3 view(s) obtained. FINDINGS: No acute fracture or dislocation evident. No joint effusion is evident. Joint spaces are preserved. Follow up exams can be performed 7-10 days from acute trauma for continued pain. IMPRESSION: 1. No acute osseous abnormality left knee [facility], , 08/15/2024 4:59 PM
== END | disposition home or self-care (01) ==
LOC: RADXRYALE 16:48
PROVIDERS: ATTEND Internal Medicine
DX: M25.562 Pain in left knee (principal)